=== PATIENT | female | born 1970 | race African-American/Black ===

== ENCOUNTER 2017-11-17 20:04 | Emergency (ER) | payer SELFPAY ==
[~2017-11-17] VITALS: Ht 172.7 cm; Wt 68.0 kg
--- NOTE | 2017-11-17 20:22 | NUR ---
Patient BIB [facility] c/o altered mental status. Per RA and [employer], patient was found at a private residence "[facility]." Per report, patient had been asked to come to the private residence by the yarn washer for unknown purposes. Patient is yelling/screaming/agitated about being in handcuffs, is threatening police and staff, and attempting to elope. Patient yelling "just arrest me" and many sexually inappropriate statements accusing staff of "touching" her person even when staff members are not present in the room. To room 3A, KUSHAL performed MSE.
[2017-11-17] MEDS ORDERED: OLANZAPINE 10 MG VIAL IM ONE ×3 (20:24→21:31)
[2017-11-17] MEDS ORDERED: diphenhydrAMINE 50 MG/1 ML VIAL ONE (20:24)
[2017-11-17] MEDS ORDERED: LORAZEPAM 2 MG/1 ML VIAL ONE (20:24)
[2017-11-17] MEDS ORDERED: LORAZEPAM 2 MG/1 ML VIAL IM ONE (20:30)
[2017-11-17] MEDS ORDERED: diphenhydrAMINE 50 MG/1 ML VIAL IV ONE (20:30)
[2017-11-17 20:53] LABS: BASOPHILS % (AUTO) 0.7 % (0.0-2.0); EOSINOPHILS # (AUTO) 0.1 K/uL (0.0-0.7); EOSINOPHILS % (AUTO) 1.4 % (0.0-7.0); HEMATOCRIT 40.6 % (31.2-41.9); HEMOGLOBIN 13.4 g/dL (10.9-14.3); LYMPHOCYTES # (AUTO) 2.5 K/uL (20.0-40.0); LYMPHOCYTES % (AUTO) 44.4 % (20.5-51.5); MEAN CORPUSCULAR HEMOGLOBIN 29.7 uug (24.7-32.8); MEAN CORPUSCULAR HGB CONC 33 g/dL (32.3-35.6); MEAN CORPUSCULAR VOLUME 89.5 fL (75.5-95.3); MONOCYTES # (AUTO) 0.3 K/uL (2.0-10.0); MONOCYTES % (AUTO) 5.8 % (0.0-11.0); NEUTROPHILS # (AUTO) 2.7 K/uL (1.8-8.9); NEUTROPHILS % (AUTO) 47.7 % (38.5-71.5); PLATELET COUNT (AUTO) 231 K/uL (179-408); RED BLOOD CELL COUNT(AUTO) 4.53 MIL/uL (3.63-4.92); WHITE BLOOD COUNT (AUTO) 5.6 K/uL (3.8-11.8)
[2017-11-17 21:04] LABS: CARBON DIOXIDE 22 mmol/L (21-32); CHLORIDE 105 mmol/L (98-107); GLUCOSE 82 mg/dL (74-106); POTASSIUM 3.4 mmol/L (3.5-5.1); UREA NITROGEN, BLOOD 6 mg/dL (7-18)
[2017-11-17 21:05] LABS: ETHANOL 268 MG/DL (0-0)
[2017-11-17 21:16] LABS: ALANINE AMINOTRANSFERASE 27 U/L (14-59); ALKALINE PHOSPHATASE 112 U/L (50-136); ASPARTATE AMINOTRANSFERASE 33 U/L (15-37); BILIRUBIN,DIRECT 0.1 mg/dL (0.0-0.2); BILIRUBIN,TOTAL 0.5 mg/dL (0.2-1.0); TOTAL PROTEIN, SERUM 7.7 g/dL (6.4-8.2)
[2017-11-17 21:21] LABS: ACETAMINOPHEN < 2.0 ug/mL (10-30)
--- NOTE | 2017-11-18 01:11 | NUR ---
Patient is resting comfortably in bed with eyes closed
--- NOTE | 2017-11-18 02:18 | NUR ---
Patient is resting comfortably in bed with eyes closed
--- NOTE | 2017-11-18 04:14 | NUR ---
Patient is resting comfortably in bed with eyes closed
--- NOTE | 2017-11-18 05:17 | NUR ---
Patient is resting comfortably in bed with eyes closed
--- NOTE | 2017-11-18 06:51 | NUR ---
Patient given written and verbal discharge instructions. Patient verbalizes understanding of instructions. Patient is ambulatory with steady gait. Refuses offer of assisted placement. Patient given list of available shelters in surrounding area.
== END 2017-11-18 07:00 | disposition home or self-care (01) ==
LOC: ER 20:06
DX: F10.129 Alcohol abuse with intoxication, unspecified (principal)
CPT/HCPCS: 36415; 80048; 80076; 85025; 96372 ×3; 99284; A4663; G0480 ×2; G0481; J1200; J2060; J2358 ×2